=== PATIENT | male | born 1950 | race Caucasian/White ===

== ENCOUNTER → 2017-10-11 11:34 | Outpatient (CLI) | payer MEDICARE, SELFPAY ==
--- NOTE | 2017-10-11 | DI.RAD.S_ITS ---
PROCEDURE: XR KUB INDICATIONS: KIDNEY STONES, LAB TECHNIQUE: One view of the abdomen acquired. COMPARISON: [facility], CT, KIDNEY/ URETER/BLADDER, 04/19/2016, 1:22. [facility], CR, KUB XRAY (1 VIEW ABDOMEN), 04/19/2016, 14:00. [facility], CR, KUB XRAY (1 VIEW ABDOMEN), 04/25/2016, 10:47. [facility], CR, KUB XRAY (1 VIEW ABDOMEN), 08/15/2016, 12:52. FINDINGS: Surgical changes and devices: None. Bowel: Bowel gas pattern is normal. Soft tissues: No suspicious abdominal calcifications. Visualized solid organ contours appear normal in size. Bones: No suspicious bony lesions. Minimal levoconvex lumbar scoliotic curvature is seen. Age-appropriate bony degenerative changes are seen. IMPRESSION: No kidney stones are seen by plain film. Dictated by: Oli Rubi M.D. on 10/11/2017 at 13:14 Approved by: Oli Rubi M.D. on 10/11/2017 at 13:16
== END ==
PROVIDERS: Family Provider Internal Medicine; PCP Internal Medicine; Visit Provider Specialist
DX: N20.0 Calculus of kidney (principal); N40.0 Benign prostatic hyperplasia without lower urinary tract symptoms
CPT/HCPCS: 36415; 74018; 84153

== ENCOUNTER → 2017-11-30 14:17 | Outpatient (CLI) | payer MEDICARE, SELFPAY ==
[2017-11-30 15:08] LABS: Erythrocyte Sedimentation Rate 12 MM/HR (0-15)
[2017-11-30 15:38] LABS: BUN Creatinine Ratio 25.7 (6-22); Blood Urea Nitrogen 36 mg/dL (9-20); Calcium 9.5 mg/dL (8.4-10.2); Carbon Dioxide 31 mmol/L (22-32); Chloride 105 mmol/L (98-107); Estimated Glomerular Filt Rate 50.5 mL/min (>60); Glucose 146 mg/dL (80-110); HEMOLYSIS < 15 (0-50); Potassium 5.3 mmol/L (3.4-5.1); Sodium 146 mmol/L (137-145)
== END ==
PROVIDERS: Family Provider Internal Medicine; PCP Internal Medicine; Visit Provider Internal Medicine
DX: I10 Essential (primary) hypertension (principal); M35.3 Polymyalgia rheumatica
CPT/HCPCS: 36415; 80048; 85651

== ENCOUNTER → 2018-02-01 10:55 | Outpatient (CLI) | payer MEDICARE, SELFPAY ==
[2018-02-01 12:26] LABS: Hemoglobin A1C% w Est Avg Glu 5.9 % (4.0-6.0)
[2018-02-01 12:42] LABS: Erythrocyte Sedimentation Rate 17 MM/HR (0-15)
[2018-02-01 12:55] LABS: BUN Creatinine Ratio 26.7 (6-22); Blood Urea Nitrogen 32 mg/dL (9-20); Calcium 9.1 mg/dL (8.4-10.2); Carbon Dioxide 32 mmol/L (22-32); Chloride 101 mmol/L (98-107); Estimated Glomerular Filt Rate > 60.0 mL/min (>60); Glucose 99 mg/dL (80-110); HEMOLYSIS 17 (0-50); Potassium 4.6 mmol/L (3.4-5.1); Sodium 141 mmol/L (137-145)
== END ==
PROVIDERS: Family Provider Internal Medicine; PCP Internal Medicine; Visit Provider Internal Medicine
DX: M35.3 Polymyalgia rheumatica (principal); I10 Essential (primary) hypertension
CPT/HCPCS: 36415; 80048; 83036; 85651

== ENCOUNTER → 2018-05-08 10:49 | Outpatient (CLI) | payer MEDICARE, SELFPAY ==
--- NOTE | 2018-05-08 10:52 | DI.RAD.S_ITS ---
PROCEDURE: XR FOOT RT MIN 3V INDICATIONS: RIGHT ANKLE TRAUMA TECHNIQUE: 3 views of the foot were acquired. COMPARISON: None. FINDINGS: Bones: No fractures or dislocations. No suspicious bony lesions. Posterior calcaneal spurring. Chronic calcification projecting adjacent to the lateral calcaneus. Irregularity of the lateral cuboid, also chronic appearance. Soft tissues: No tibiotalar joint effusion. Achilles tendon appears normal. IMPRESSION: No acute fracture. Chronic appearing calcification projecting adjacent the lateral calcaneus, unclear etiology or clinical significance. Theoretically this could represent a old fracture fragment, potentially from a distant lateral cuboid donor site. Posterior calcaneal spurring. Dictated by: Milton Schroeder M.D. on 05/08/2018 at 12:39 Approved by: Milton Schroeder M.D. on 05/08/2018 at 12:42
--- NOTE | 2018-05-08 10:52 | DI.RAD.S_ITS ---
PROCEDURE: XR ANKLE RT MIN 3V INDICATIONS: RIGHT ANKLE TRAUMA TECHNIQUE: 4 views of the ankle were acquired. COMPARISON: None. FINDINGS: Bones: No fractures or dislocations. Ankle mortise is normally aligned. No suspicious bony lesions. Posterior calcaneal spurring. Lateral soft tissue swelling. IMPRESSION: Lateral soft tissue swelling otherwise negative exam. If the patient's pain or other symptoms persist, consider further follow up radiographs in 10 days to assess for occult injury, or evaluation with dedicated MRI. Dictated by: Milton Schroeder M.D. on 05/08/2018 at 12:37 Approved by: Milton Schroeder M.D. on 05/08/2018 at 12:39
== END ==
PROVIDERS: PCP Internal Medicine; Visit Provider Internal Medicine
DX: S99.911A Unspecified injury of right ankle, initial encounter (principal); M77.31 Calcaneal spur, right foot
CPT/HCPCS: 73610; 73630

== ENCOUNTER → 2018-05-15 08:00 | Outpatient (CLI) | payer MEDICARE, SELFPAY ==
[2018-05-15 08:48] LABS: Erythrocyte Sedimentation Rate 11 MM/HR (0-15)
[2018-05-15 10:54] LABS: Hep C Virus Ab w/Reflex Quant NEGATIVE s/c (NEGATIVE)
== END ==
PROVIDERS: Family Provider Internal Medicine; PCP Internal Medicine; Visit Provider Internal Medicine
DX: Z00.00 Encounter for general adult medical examination without abnormal findings (principal); I10 Essential (primary) hypertension; M35.3 Polymyalgia rheumatica
CPT/HCPCS: 36415; 85651; 86803

== ENCOUNTER → 2018-08-09 09:27 | Outpatient (CLI) | payer MEDICARE, SELFPAY ==
[2018-08-09 10:06] LABS: Erythrocyte Sedimentation Rate 10 MM/HR (0-15)
[2018-08-09 10:55] LABS: BUN Creatinine Ratio 24.5 (6-22); Blood Urea Nitrogen 27 mg/dL (9-20); Calcium 9.2 mg/dL (8.4-10.2); Carbon Dioxide 25 mmol/L (22-32); Chloride 100 mmol/L (98-107); Estimated Glomerular Filt Rate > 60.0 mL/min (>60); Glucose 108 mg/dL (80-110); HEMOLYSIS 34 (0-50); Potassium 4.9 mmol/L (3.4-5.1); Sodium 137 mmol/L (137-145)
== END ==
PROVIDERS: PCP Internal Medicine; Visit Provider Internal Medicine
DX: I10 Essential (primary) hypertension (principal); M35.3 Polymyalgia rheumatica
CPT/HCPCS: 36415; 80048; 85651

== ENCOUNTER → 2018-08-14 10:48 | Outpatient (CLI) | payer MEDICARE, SELFPAY ==
--- NOTE | 2018-08-14 | DI.RAD.S_ITS ---
PROCEDURE: XR HAND RT MIN 3V INDICATIONS: POLYARTHRITIS TECHNIQUE: 3 views of the hand(s) acquired. COMPARISON: None. FINDINGS: Bones: No fractures or dislocations. Carpal bones are normally aligned. No suspicious bony lesions. There is minimal scattered IP degenerative narrowing. Mild first CMC degenerative narrowing as well as radiocarpal narrowing is identified. Small scattered areas of lucency are noted at the DIP joints diffusely. Soft tissues: No suspicious soft tissue calcifications. IMPRESSION: 1. Scattered IP degenerative narrowing with areas of lucency at the DIP joints. While some areas could represent cystic change, areas of erosion cannot be excluded. Dictated by: Pallavi Howard M.D. on 08/14/2018 at 15:21 Approved by: Pallavi Howard M.D. on 08/14/2018 at 15:23
--- NOTE | 2018-08-14 | DI.RAD.S_ITS ---
PROCEDURE: XR HAND LT MIN 3V INDICATIONS: POLYARTHRITIS TECHNIQUE: 3 views of the hand(s) acquired. COMPARISON: [facility], CR, XR HAND RT MIN 3V, 08/14/2018, 10:51. FINDINGS: Bones: No fractures or dislocations. Carpal bones are normally aligned. No suspicious bony lesions. Minimal to mild first CMC degenerative narrowing. Mild scattered IP degenerative narrowing. There are areas of cystic change at the IP joints. Several punctate areas are noted particularly at the DIP joints too small to characterize as cyst versus erosion. Soft tissues: No suspicious soft tissue calcifications. IMPRESSION: Degenerative arthritic changes most prominent at the first CMC joint as above. Dictated by: Pallavi Howard M.D. on 08/14/2018 at 15:23 Approved by: Pallavi Howard M.D. on 08/14/2018 at 15:41
[2018-08-14 11:58] LABS: C-Reactive Protein Quant 1.9 mg/dL (<1.0)
[2018-08-14 11:59] LABS: Rheumatoid Factor < 8.6 IU/mL (<12.0)
[2018-08-15 14:28] LABS: CCP Antibody (IgG) < 16 Units (< 20)
[2018-08-16 21:52] LABS: ANA Screen, IFA Negative (Negative)
== END ==
PROVIDERS: PCP Internal Medicine; Visit Provider Internal Medicine
DX: M35.3 Polymyalgia rheumatica (principal); M18.0 Bilateral primary osteoarthritis of first carpometacarpal joints
CPT/HCPCS: 36415; 73130; 83516; 86038; 86140; 86430

== ENCOUNTER → 2018-11-05 13:43 | Outpatient (CLI) | payer MEDICARE, SELFPAY ==
--- NOTE | 2018-11-05 | DI.RAD.S_ITS ---
PROCEDURE: XR KUB INDICATIONS: KIDNEY STONES TECHNIQUE: One view of the abdomen acquired. COMPARISON: [facility], CR, XR KUB, 10/11/2017, 11:28. [facility], CR, KUB XRAY (1 VIEW ABDOMEN), 08/15/2016, 12:52. FINDINGS: Surgical changes and devices: None. Bowel: Bowel gas pattern is normal. Soft tissues: No suspicious abdominal calcifications. Visualized solid organ contours appear normal in size. Bones: No suspicious bony lesions. IMPRESSION: No urinary tract stone is identified, bowel gas pattern is normal. Dictated by: Mino Woodson M.D. on 11/05/2018 at 14:29 Approved by: Mino Woodson M.D. on 11/05/2018 at 14:29
[2018-11-05 16:15] LABS: Prostate Specific Antigen 0.321 ng/mL (0.10-4.00)
== END ==
PROVIDERS: PCP Internal Medicine; Visit Provider Specialist
DX: N40.1 Benign prostatic hyperplasia with lower urinary tract symptoms (principal); N20.0 Calculus of kidney
CPT/HCPCS: 36415; 74018; 84153

== ENCOUNTER → 2018-11-30 13:26 | Outpatient (CLI) | payer MEDICARE, SELFPAY ==
[2018-11-30 14:44] LABS: BUN Creatinine Ratio 22.3 (6-22); Blood Urea Nitrogen 29 mg/dL (9-20); Calcium 9.6 mg/dL (8.4-10.2); Carbon Dioxide 27 mmol/L (22-32); Chloride 105 mmol/L (98-107); Estimated Glomerular Filt Rate 54.9 mL/min (>60); Glucose 96 mg/dL (80-110); HEMOLYSIS < 15 (0-50); Sodium 140 mmol/L (137-145)
[2018-11-30 15:44] LABS: Erythrocyte Sedimentation Rate 16 MM/HR (0-15)
== END ==
PROVIDERS: PCP Internal Medicine; Visit Provider Internal Medicine
DX: M15.0 Primary generalized (osteo)arthritis (principal); M35.3 Polymyalgia rheumatica; I10 Essential (primary) hypertension
CPT/HCPCS: 36415; 80048; 85651

== ENCOUNTER → 2019-01-31 08:02 | Outpatient (CLI) | payer MEDICARE, SELFPAY ==
[2019-01-31 09:46] LABS: BUN Creatinine Ratio 22.5 (6-22); Blood Urea Nitrogen 27 mg/dL (9-20); Calcium 9.4 mg/dL (8.4-10.2); Carbon Dioxide 28 mmol/L (22-32); Chloride 103 mmol/L (98-107); Estimated Glomerular Filt Rate > 60.0 mL/min (>60); Glucose 109 mg/dL (80-110); HEMOLYSIS < 15 (0-50); Potassium 4.9 mmol/L (3.4-5.1); Sodium 138 mmol/L (137-145)
[2019-01-31 10:03] LABS: Erythrocyte Sedimentation Rate 7 MM/HR (0-15)
== END ==
PROVIDERS: PCP Internal Medicine; Visit Provider Internal Medicine
DX: M15.0 Primary generalized (osteo)arthritis (principal); I10 Essential (primary) hypertension
CPT/HCPCS: 36415; 80048; 85651

== ENCOUNTER → 2019-10-29 08:28 | Outpatient (CLI) | payer MEDICARE, SELFPAY ==
[2019-10-29 10:25] LABS: Erythrocyte Sedimentation Rate 5 MM/HR (0-15)
[2019-10-29 10:41] LABS: BUN Creatinine Ratio 23.3 (6-22); Blood Urea Nitrogen 24 mg/dL (9-20); Calcium 9.8 mg/dL (8.4-10.2); Carbon Dioxide 25 mmol/L (22-32); Chloride 106 mmol/L (98-107); Estimated Glomerular Filt Rate > 60.0 mL/min (>60); Glucose 118 mg/dL (80-110); HEMOLYSIS < 15 (0-50); Potassium 4.7 mmol/L (3.4-5.1); Sodium 138 mmol/L (137-145)
[2019-10-29 11:05] LABS: Prostate Specific Antigen 0.316 ng/mL (0.10-4.00)
== END ==
PROVIDERS: PCP Internal Medicine; Referring Provider Internal Medicine; Visit Provider Internal Medicine
DX: Z12.5 Encounter for screening for malignant neoplasm of prostate (principal); M35.3 Polymyalgia rheumatica; I10 Essential (primary) hypertension
CPT/HCPCS: 36415; 80048; 84153; 85651; G0103

== ENCOUNTER → 2020-03-31 07:12 | Outpatient (CLI) | payer MEDICARE, SELFPAY ==
[2020-03-31 09:56] LABS: Erythrocyte Sedimentation Rate 6 MM/HR (0-15)
== END ==
PROVIDERS: PCP Internal Medicine; Referring Provider Internal Medicine; Visit Provider Internal Medicine
DX: Z95.2 Presence of prosthetic heart valve (principal); I48.91 Unspecified atrial fibrillation
CPT/HCPCS: 36415; 85651

== ENCOUNTER → 2020-05-12 10:54 | Outpatient (CLI) | payer MEDICARE, SELFPAY ==
[2020-05-12 12:28] LABS: Erythrocyte Sedimentation Rate 4 MM/HR (0-15)
== END ==
PROVIDERS: PCP Internal Medicine; Referring Provider Internal Medicine; Visit Provider Internal Medicine
DX: M35.3 Polymyalgia rheumatica (principal)
CPT/HCPCS: 36415; 85651

== ENCOUNTER → 2020-07-28 07:40 | Outpatient (CLI) | payer MEDICARE, SELFPAY ==
[2020-07-28 08:27] LABS: Add Manual Diff / Slide Review NO; Basophils Absolute Auto 0 /uL (0-100); Basophils Percent Auto 0.7 % (0-2); Eosinophils Absolute Auto 300 /uL (0-450); Eosinophils Percent Auto 4.6 % (2-4); Hematocrit 43.2 % (41-53); Hemoglobin 14.5 g/dL (13.5-17.5); Lymphocytes Absolute Auto 1500 /uL (1100-4500); Lymphocytes Percent Auto 23.4 % (25-40); Mean Corpuscular HGB Conc 33.5 % (30-36); Mean Corpuscular Hemoglobin 29.8 PG (26-34); Mean Corpuscular Volume 89.1 fL (80-100); Monocytes Absolute Auto 400 /uL (0-900); Monocytes Percent Auto 6.3 % (3-14); Neutrophils Absolute Auto 4300 /uL (1500-7000); Platelet Count 245 X10^3/uL (150-400); Red Blood Cell Count 4.85 X10^6/uL (4.5-5.9); Red Cell Distribution Width 13.7 % (11.6-14.8); White Blood Cell Count 6.6 X10^3/uL (4.5-11.0)
[2020-07-28 08:51] LABS: Alanine Aminotransferase 33 IU/L (<50); Albumin 4.2 g/dL (3.5-5.0); Albumin Globulin Ratio 1.6 (1.0-2.8); Alkaline Phosphatase 68 U/L (38-126); Aspartate Aminotransferase 31 IU/L (17-59); BUN Creatinine Ratio 23.4 (6-22); Bilirubin Total 0.2 mg/dL (0.2-1.3); Blood Urea Nitrogen 30 mg/dL (9-20); Calcium 9.4 mg/dL (8.4-10.2); Carbon Dioxide 30 mmol/L (22-32); Chloride 103 mmol/L (98-107); Cholesterol 167 mg/dL (140-199); Estimated Glomerular Filt Rate 55.7 mL/min (>60); Globulin 2.7 g/dL (1.7-4.1); Glucose 115 mg/dL (80-110); HDL Cholesterol 41 mg/dL (40-60); HEMOLYSIS < 15 (0-50); LDL Cholesterol Calculated 106 mg/dL (<100); Potassium 4.8 mmol/L (3.4-5.1); Sodium 138 mmol/L (137-145); Total Protein 6.9 g/dL (6.3-8.2); Triglycerides 102 mg/dL (35-150)
[2020-07-28 09:54] LABS: Erythrocyte Sedimentation Rate 4 MM/HR (0-15)
== END ==
PROVIDERS: PCP Internal Medicine; Referring Provider Internal Medicine; Visit Provider Internal Medicine
DX: I10 Essential (primary) hypertension (principal); E78.2 Mixed hyperlipidemia; M35.3 Polymyalgia rheumatica
CPT/HCPCS: 36415; 80053; 80061; 85025; 85651

== ENCOUNTER → 2021-03-11 09:06 | Outpatient (CLI) | payer MEDICARE, SELFPAY ==
[2021-03-11 10:34] LABS: COVID19 -Nasal RAPID Negative (Negative)
== END ==
PROVIDERS: PCP Internal Medicine; Referring Provider Surgery; Visit Provider Surgery
DX: Z01.812 Encounter for preprocedural laboratory examination (principal); Z20.822 Contact with and (suspected) exposure to COVID-19
CPT/HCPCS: 87635; C9803

== ENCOUNTER 2021-03-12 06:42 | Day surgery (SDC) | payer MEDICARE, SELFPAY ==
[2021-03-12 07:12] VITALS: BP 146/94; PULSE 86; RESP 18; TEMP 36.4; O2SAT 97; BMI 65.7
[2021-03-12] MEDS: LACTATED RINGERS 1,000 ML 42 ML IV (07:29)
--- NOTE | 2021-03-12 07:43 | P.HP_ITS ---
History of Present Illness History of Present Illness Date Patient Seen: 03/12/21 Time Patient Seen: 07:43 Chief complaint: [facility] [place] Narrative: H/o colon polyps, last scope was 6 years ago. NO GI symptoms Patient History Family & Social History Social History: household members spouse Tobacco & Substance use: Smoking Status Never smoker alcohol intake current alcohol intake frequency a few times a month Substance Use Type does not use Meds Home Medications and Allergies Home Medications Medication Instructions Recorded Confirmed Type lisinopril 20 1 tab PO Q DAY #0 04/18/16 03/12/21 History mg-hydrochlorothiazide 12.5 mg tablet omeprazole 20 mg capsule,delayed 20 mg PO Q DAY #0 04/18/16 03/12/21 History release metoprolol tartrate 25 mg tablet 25 mg PO QDAY #0 08/14/17 03/12/21 History potassium citrate 15 mEq (1,620 1,620 mg PO BID #90 tab 11/17/20 03/12/21 Rx mg) tablet,extended release cholecalciferol (vitamin D3) 125 125 mcg PO DAILY 03/12/21 03/12/21 History mcg (5,000 unit) tablet (Vitamin D3) fluticasone propionate 110 2 puff INHALATION DAILY 03/12/21 03/12/21 History mcg/actuation HFA aerosol inhaler (Flovent HFA) Allergies Allergy/AdvReac Type Severity Reaction Status Date / Time No Known Drug Allergies Allergy Verified 03/12/21 07:19 Review of Systems Review of Systems ROS: Yes All systems reviewed with the patient and are negative except as otherwise documented Exam Vital Signs (past 8 hours): - 03/12/21 07:12 Temperature 97.6 F Pulse Rate 86 Respiratory Rate 18 Blood Pressure 146/94 H Pulse Oximetry 97 Oxygen Delivery Method Room Air Const General: cooperative and healthy appearing [facility] Head: normocephalic and atraumatic Face and sinus: normal facial exam Eyes General: appearance normal, both eyes and all related structures Neck Neck: trachea midline Resp Effort & Inspection: normal respiratory effort and able to speak in complete sentences Auscultation: clear to auscultation bilaterally Cardio Rate: regular rate Rhythm: regular rhythm GI Inspection: normal to inspection Palpation: soft Skin General: no rashes or lesions noted and atrophy Neuro General: patient alert and patient oriented x3 Cognition: normal cognition Extrem General: full ROM Psych Appearance: grossly normal Judgment: judgment good Assessment & Plan Assessment & Plan narrative: H/o colon polyps colonoscopy with moderate sedation COVID-19 COVID-19 status: Positive Time Spent With Patient Time with patient: less than 30 minutes Critical Care time: I spent a total of [] minutes of critical care time on this patient's care today; this time is exclusive of procedural time.
--- NOTE | 2021-03-12 07:46 | PM.OP.ENDO ---
Operative Date/Time/Diagnoses Date of procedure: 03/12/21 Time of procedure: 07:46 Pre-op diagnosis: h/o colon polyps Post-op diagnosis: same Procedure & Clinicians Study performed: Colonoscopy with moderate sedation Same procedure as scheduled: Yes Indications: History of colon polyps Surgeon: Tatiana Cooper Procedure Notes SCOAP/Timeout: Done Procedure in detail: Preop diagnosis: History of colon polyps Postop diagnosis: Same Operative procedure: Colonoscopy with moderate sedation Surgeon: Jose Cruz Cooper MD Anesthetic: 100 micro g fentanyl 5 mg Versed Findings: No polyps. No no diverticulosis. No abnormalities Procedure: Patient placed in a lateral position. Rectal exam is performed showing normal tone no masses. Colonoscope inserted into the rectum and advanced to the ileocecal valve with minimal difficulty. Insufflation extraction scope and the above findings. Impression: No polyps identified, no significant diverticulosis. Plan: Repeat colonoscopy in 5 years due to self history of colon polyps Sedation minutes: 12 Specimen(s): none sent Complications: none Post-procedure Recommendations: Colonscopy in 5 years Plan for aftercare: Home with Follow up: as needed Disposition: PACU
[2021-03-12] MEDS: fentaNYL 250 MCG/5 ML INJ IV (08:02)
[2021-03-12] MEDS: MIDAZOLAM 5 MG/5 ML VIAL IV (08:03)
[2021-03-12 08:04] VITALS: BP 121/74; PULSE 70; RESP 12; TEMP 37.2; O2SAT 92
[2021-03-12 08:10] VITALS: BP 121/74; PULSE 69; RESP 16; O2SAT 93
--- NOTE | 2021-03-12 08:11 | SUR.PHASEI ---
Report given to Clarisa EM.
[2021-03-12 08:14] VITALS: BP 132/86; PULSE 78; RESP 11; O2SAT 95
[2021-03-12 08:23] VITALS: BP 124/82; PULSE 75; RESP 16; O2SAT 95
[2021-03-12 08:30] VITALS: BP 110/80; PULSE 72; RESP 16; TEMP 36.1; O2SAT 95
== END 2021-03-12 08:40 | disposition home or self-care (01) ==
PROVIDERS: PCP Internal Medicine; Referring Provider Surgery; Visit Provider Surgery
PROC: 0DJD8ZZ Inspection of Lower Intestinal Tract, Via Natural or Artificial Opening Endoscopic (ICD-10-PCS; CPT 45378; principal; 2021-03-12 07:45)
DX: Z12.11 Encounter for screening for malignant neoplasm of colon (principal); Z86.010 Personal history of colon polyps
CPT/HCPCS: G0105; 99152; J2250; J3010

== ENCOUNTER → 2021-11-25 09:45 | Outpatient (CLI) | payer MEDICARE, SELFPAY ==
--- NOTE | 2021-12-08 07:41 | P.HOLT.S_ITS ---
[facility] Report Referral & Results Date Patient Seen: 11/25/21 Requesting provider: Nelsy Chapman Indication: Palpitations Duration of monitoring (days): 3 Diary information: There were 2 patient triggered events associated with sinus rhythm only Data: Minimum heart rate identified was 44 beats per minute at 06:32 on 11/28/2021 Maximum sinus heart rate was 130 beats per minute at 14:57 on 11/27/2021 Maximum overall heart rate was 207 beats per minute at 18:30 on 11/25/2021 during a run of SVT Less than 1% of identified beats were ventricular or supraventricular ectopic in origin, which would classify them as rare. There were 15 runs of SVT identified the fastest being the 4 beat run as above at a rate of 207 beats per minute the longest lasting 22.2 seconds and average rate of 119 beats per minute. Episodes of SVT may more consistent with atrial tachycardia than true SVT There were no episodes of atrial fibrillation or pauses of 3 seconds or longer identified on this study Impression: 3 day nurse monitoring demonstrating very rare very brief runs of SVT as above
== END ==
PROVIDERS: PCP Internal Medicine; Referring Provider Family Medicine; Visit Provider Family Medicine
DX: R00.2 Palpitations (principal)
CPT/HCPCS: 93242; 93244

== ENCOUNTER → 2021-12-27 07:49 | Outpatient (CLI) | payer MEDICARE, SELFPAY ==
--- NOTE | 2021-12-27 | DI.ECHO.S_ITS ---
[facility] +---------+ : : [address] : [place] [address] : : : : [id number] : : : : Phone: [phone]+ Echocardiogram Report + + :Name: SUZANNE YOUNG Study Date: 12/27/2021 Height: 72 in : :[facility] ReadingLocation: Weight: 260 lb : : Gender: Male BSA: 2.4 m2 : :: 1950 Age: 71 yrs BP: 151/94 mmHg: :Reason For Study: Palpitations : :Ordering Physician: GERALD, : :ELLA Performed By: Laith Gonzalez : :Referring: ELLA DUARTE : + + Interpretation Summary The ejection fraction is estimated to be 55-60%. A bicuspid aortic valve cannot be excluded. There is no hemodynamically significant valvular aortic stenosis. Procedure: A two-dimensional transthoracic echocardiogram with color flow and Doppler was performed. The study quality was technically adequate. There is no prior echocardiogram noted for this patient. The patient was in normal sinus rhythm during the exam. Left Ventricle: The left ventricle is normal in size and wall thickness. Left ventricular systolic function is normal. The ejection fraction is estimated to be 55-60%. There are no focal wall motion abnormalities. Diastolic parameters suggest probable normal left ventricular diastolic function and normal filling pressures. Right Ventricle: The right ventricle is normal in size and function. Atria: Both atria are normal in size. The interatrial septum grossly appears intact with no obvious evidence for an atrial septal defect. Mitral Valve: The mitral valve is normal in structure and function. There is trace mitral regurgitation. Aortic Valve: A bicuspid aortic valve cannot be excluded. The aortic valve opens well. The aortic valve is mildly calcified. The aortic valve area is 2.6 centimeters squared by planimetry. The aortic valve mean gradient is 11.5 mmHg. There is no hemodynamically significant valvular aortic stenosis. There is mild aortic regurgitation. Tricuspid Valve: The tricuspid valve is normal in structure and function. No tricuspid regurgitation. Pulmonary artery pressures cannot be estimated because of the lack of a measurable TR jet velocity. Pulmonic Valve: The pulmonic valve is not well seen, but is grossly normal. There is a trace or physiologic amount of pulmonic regurgitation. Great Vessels: The aortic root is normal size. The dimensions of the ascending aorta are normal. The IVC is of normal diameter and collapses greater than 50% with a sniff. This suggests a low right atrial pressure of 3 mm Hg. Pericardium/ Pleura There is no pericardial effusion. There is no pleural effusion. MMode/2D Measurements & Calculations LVIDd: 5.5 cm LVOT diam: 2.4 cm LVIDs: 3.8 cm Ao root diam: 3.8 cm FS: 30.9 % asc Aorta Diam: 3.6 cm IVSd: 1.1 cm LVPWd: 1.1 cm LV youngblood. diameter/BSA (cm/m^2): 2.3 LV sys. diameter/BSA (cm/m^2): 1.6 LA dimension: 2.9 cm RA long axis: 5.6 cm LA A2 area: 19.8 cm2 LA A4 area: 19.3 cm2 LA length (vol): 5.8 cm LA vol: 56.2 ml LA vol index: 23.6 ml/m2 TAPSE_phl: 3.2 cm GELACIO (plan): 2.6 cm2 Doppler Measurements & Calculations Ao V2 max: 236.0 cm/sec LVOT Max Murphy: 108.0 cm/sec Ao V2 mean: 160.0 cm/sec LV V1 max P.7 mmHg Ao max P.0 mmHg LV V1 VTI: 25.6 cm Ao mean P.5 mmHg GELACIO(I,D): 2.3 cm2 Ao V2 VTI: 49.8 cm GELACIO(V,D): 2.0 cm2 sev ratio: 0.51 GELACIO indexed to BSA (cm^2/m^2): 0.95 MV E max murphy: 84.0 cm/sec SV(LVOT): 112.2 ml MV A max murphy: 101.0 cm/sec MV E/A: 0.83 Med Peak E' Murphy: 7.9 cm/sec E/E' med: 10.6 Lat Peak E' Murphy: 11.9 cm/sec E/E' lat: 7.1 E/e' average: 8.8 MV dec time: 0.26 sec AV VR_phl: 0.46 MV P1/2t-pr_phl: 77.0 msec GELACIO(LEANA)/BSA_phl: 0.97 Reading Physician:01:24 PM
== END ==
PROVIDERS: PCP Family Medicine; Referring Provider Family Medicine; Visit Provider Family Medicine
DX: I35.1 Nonrheumatic aortic (valve) insufficiency (principal); R00.2 Palpitations
CPT/HCPCS: 93306

== ENCOUNTER → 2022-10-11 16:18 | Outpatient (CLI) | payer MEDICARE, SELFPAY ==
--- NOTE | 2022-10-11 | DI.RAD.S_ITS ---
PROCEDURE: XR CHEST 2V INDICATIONS: Asthma TECHNIQUE: 2 views of the chest were acquired. COMPARISON: [facility], , CHEST 2 VIEW, 09/15/2011, 6:51. FINDINGS: Surgical changes and devices: None. Lungs and pleura: Lungs are clear. No pleural effusions or pneumothorax. Mediastinum: Mediastinal contours are normal. Heart size is normal. Bones and chest wall: No suspicious bony abnormalities. Soft tissues appear unremarkable. IMPRESSION: No acute cardiopulmonary disease process. Dictated by: Zoraida Davison MD, PhD on 10/11/2022 at 16:52 Approved by: Zoraida Davison MD, PhD on 10/11/2022 at 16:53
[2022-10-11 17:56] LABS: Add Manual Diff / Slide Review NO; Basophils Absolute Auto 0 /uL (0-100); Basophils Percent Auto 0.6 % (0-2); Eosinophils Absolute Auto 200 /uL (0-450); Hematocrit 42.4 % (41-53); Hemoglobin 14.4 g/dL (13.5-17.5); Lymphocytes Absolute Auto 1000 /uL (1100-4500); Lymphocytes Percent Auto 17.5 % (25-40); Mean Corpuscular HGB Conc 34.1 % (30-36); Mean Corpuscular Hemoglobin 30.2 PG (26-34); Mean Corpuscular Volume 88.6 fL (80-100); Monocytes Absolute Auto 600 /uL (0-900); Monocytes Percent Auto 10.9 % (3-14); Neutrophils Absolute Auto 4000 /uL (1500-7000); Platelet Count 295 X10^3/uL (150-400); Red Blood Cell Count 4.78 X10^6/uL (4.5-5.9); Red Cell Distribution Width 13.9 % (11.6-14.8); White Blood Cell Count 5.9 X10^3/uL (4.5-11.0)
[2022-10-11 18:18] LABS: Erythrocyte Sedimentation Rate 10 MM/HR (0-15)
[2022-10-11 18:37] LABS: Alanine Aminotransferase 90 IU/L (<50); Albumin 4.5 g/dL (3.5-5.0); Albumin Globulin Ratio 1.6 (1.0-2.8); Alkaline Phosphatase 80 U/L (38-126); Aspartate Aminotransferase 64 IU/L (17-59); Bilirubin Total 0.5 mg/dL (0.2-1.3); Blood Urea Nitrogen 23 mg/dL (9-20); Calcium 9.6 mg/dL (8.4-10.2); Carbon Dioxide 25 mmol/L (22-32); Chloride 103 mmol/L (98-107); Estimated Glomerular Filt Rate > 60 mL/min (>60); Globulin 2.8 g/dL (1.7-4.1); Glucose 123 mg/dL (80-110); HEMOLYSIS < 15 (0-50); Magnesium 1.8 mg/dL (1.6-2.3); Potassium 4.2 mmol/L (3.4-5.1); Sodium 138 mmol/L (137-145); Total Protein 7.3 g/dL (6.3-8.2)
[2022-10-13 07:36] LABS: x Labcorp Estim. Avg Glu (eAG) 160 mg/dL (.); x Labcorp Hemoglobin A1c 7.2 % (4.8-5.6)
== END ==
PROVIDERS: PCP Family Medicine; Referring Provider Family Medicine; Visit Provider Family Medicine
DX: J45.30 Mild persistent asthma, uncomplicated (principal); I10 Essential (primary) hypertension; M79.10 Myalgia, unspecified site; R00.2 Palpitations; E78.5 Hyperlipidemia, unspecified; K21.9 Gastro-esophageal reflux disease without esophagitis; E66.9 Obesity, unspecified
CPT/HCPCS: 36415; 71046; 80053; 83036; 83735; 85025; 85651; 86140

== ENCOUNTER → 2022-12-14 09:04 | Outpatient (CLI) | payer MEDICARE, SELFPAY ==
--- NOTE | 2022-12-14 | DI.RAD.S_ITS ---
PROCEDURE: XR KNEE LT 3V INDICATIONS: LEFT KNEE PAIN TECHNIQUE: 3 views of the knee were acquired. COMPARISON: None. FINDINGS: Bones: No fractures or dislocations. No suspicious bony lesions. Mild tricompartmental knee joint degeneration. Soft tissues: Small joint effusion. No suspicious soft tissue calcifications. IMPRESSION: 1. Mild osteoarthritic changes. 2. Small knee joint effusion. Dictated by: Kary Wilder M.D. on 12/14/2022 at 11:58 Approved by: Kary Wilder M.D. on 12/14/2022 at 11:59
== END ==
PROVIDERS: PCP Family Medicine; Referring Provider Family Medicine; Visit Provider Family Medicine
DX: M25.562 Pain in left knee (principal); M25.461 Effusion, right knee
CPT/HCPCS: 73562